=== PATIENT | female | born 1995 | race Caucasian/White ===

== ENCOUNTER → 2017-01-29 | Outpatient (CLI) | payer BC ==
--- NOTE | 2017-01-29 19:47 | Diagnostic Imaging Report ---
EXAMINATION: Magnetic resonance imaging of the right knee without intravenous contrast DATE: 01/29/2017. COMPARISON: None. INDICATION: 22-year-old female, history of fall in December 2016. Right knee pain. TECHNIQUE: Multiplanar, multisequence non contrast enhanced MR imaging was accomplished. FINDINGS: MENISCI: The medial meniscus is intact. The lateral meniscus is intact. LIGAMENTS AND TENDONS: The anterior and posterior cruciate ligaments are intact. The medial collateral ligament is intact. The iliotibial band, mid third lateral capsular ligament, fibular collateral ligament, biceps femoris tendon and conjoined tendon are intact. The quadriceps tendon and patella ligament are intact. JOINT: The articular cartilage surfaces are intact. There is no knee joint effusion, prominent synovitis, or intra-articular body. BONE: There is extensive T1 hypointense and T2 hyperintense abnormal signal involving the proximal tibial epiphysis extending into the proximal metadiaphysis in the inferior margin of the ujuiq-na-hmim. There is no identified cortical or aggressive bone destruction. There is no visible periosteal reaction on MRI. There is no associated soft tissue mass. There is no identified fracture. There are no pathognomonic signal changes of osteonecrosis. There is a normal appearance of the bone marrow of the distal femur with areas of red marrow present. BURSAE AND SOFT TISSUES: There is fluid in the semimembranosus bursa compatible with semimembranosus bursitis. There is no Bragg's cyst. The additional soft tissues are unremarkable. IMPRESSION: 1. Extensive abnormal marrow signal in the visualized proximal tibia which includes signal abnormalities in the proximal tibial epiphysis and proximal tibial metadiaphysis extending to the inferior margin of the [id number]. Recommend dedicated MRI of the right tibia and fibula with and without contrast (tumor protocol) for further assessment and for visualization of the complete extent of the marrow signal abnormalities. The overall extent of abnormal marrow signal does raise concern for an infiltrative bone lesion including malignancies such as lymphoma and Koehler's sarcoma. Langerhans cell histiocytosis and osteomyelitis would be included in the differential diagnosis. Extensive marrow edema relating to an acute more distally located process of the tibia would also be a consideration. 2. Intact medial and lateral meniscus. 3. Intact anterior and posterior cruciate ligaments. Additional ligaments and tendons are intact. 4. Intact articular cartilage. No knee joint effusion. 5. Fluid in the semimembranosus bursa compatible with semimembranosus bursitis. Report faxed to Dr. Licona at 7:46 p.m. 01/29/2017/cb Dictated on workstation # [id number]
== END ==
LOC: RAD 13:01
PROVIDERS: ATTEND Orthopaedic Surgery
DX: R93.7 Abnormal findings on diagnostic imaging of other parts of musculoskeletal system (principal); M71.9 Bursopathy, unspecified
CPT/HCPCS: 73721

== ENCOUNTER → 2017-02-04 | Outpatient (CLI) | payer BC ==
[~2017-02-04] MED LIST: GADOBUTROL 7.5 MMOL/7.5 ML (GADAVIST) VIAL IV ONE
--- NOTE | 2017-02-04 17:10 | Diagnostic Imaging Report ---
EXAM: MRI of the right tibia and fibula without contrast. DATE: February 04, 2017. INDICATION: 22-year-old female, evaluation of marrow signal in the right proximal tibia. COMPARISON: MRI right knee January 29, 2017. TECHNIQUE: Multiple pre- and post-contrast MRI sequences of the right tibia and fibula were obtained. Many sequences include the left tibia and fibula in the [id number]. FINDINGS: There is prominent T2 hyperintense signal in the marrow of the right and left proximal tibias, which extend from the level of the proximal tibial epiphysis to the level of the proximal tibial metadiaphysis. The distal extent of the areas of marrow signal are well demarcated. This is a symmetric appearance bilaterally. There is no identified cortical destruction. There is no associated soft tissue mass. The additional marrow signal within the right and left tibia and fibula is unremarkable. There is no acute fracture. There is no evidence of stress reaction. There is no identified periosteal reaction. There is fluid in the right semimembranosus bursa consistent with semimembranosus bursitis on the right. The additional visualized soft tissues are unremarkable. IMPRESSION: 1. T2 hyperintense marrow signal changes with symmetric appearance in the right and left proximal tibia involving the proximal tibial epiphysis and extending to the level of the proximal tibial metadiaphysis. There is no visualized cortical destruction or associated soft tissue mass. Although the degree of hyperintense marrow signal is prominent and there is extension of signal abnormalities into the epiphysis, particularly given the symmetric appearance, this is favored to relate to prominent red marrow bilaterally. 2. Fluid in the right semimembranosus bursa compatible with semimembranosus bursitis. Dictated by: Dictated on workstation # [id number]
== END ==
LOC: RAD 15:04
PROVIDERS: ATTEND Orthopaedic Surgery
DX: R93.6 Abnormal findings on diagnostic imaging of limbs (principal); M71.88 Other specified bursopathies, other site
CPT/HCPCS: 73720

== ENCOUNTER 2017-02-08 21:09 | Emergency (ER) | payer BC ==
[~2017-02-08] VITALS: Ht 172.7 cm; Wt 58.1 kg
[2017-02-08] MEDS ORDERED: FLUO20CA25 (21:33)
--- NOTE | 2017-02-08 22:01 | ED Back Pain ---
General Chief Complaint: Back Problems Stated Complaint: BACK PAIN Nursing Triage Note: PT TO ED W/ C/O BACK PAIN TO UPPER MIDDLE BACK WHEN SWALLOING. PT REPORTS PAIN WORSE THIS EVENING WHEN SHE FELT LIKE VOMITING. DOES REPORT SHE WAS "LIFTING CADAVERS" EARLIER TODAY ET ALSO REPORTS RECENT COLD. NO OTHER C/O VOICED, DENIES INJURY Nursing Sepsis Screen: No Definite Risk Source of Information: Patient Exam Limitations: No Limitations History of Present Illness Time Seen by Provider: 22:01 Initial Comments 22-year-old female patient presents to the emergency department complaints of upper back pain beginning this afternoon. Patient states she was lifting cadaver's earlier today while at class. States this evening pain increased in patient began feeling nauseated. Denies vomiting. Denies fever, chills, shortness of air, chest pain, dizziness area and denies abdominal pain. Patient reports pain has eased up and is now a 2/10. Location: Paraspinous Muscles, T-Spine Timing/Duration: 4-6 Hours Pain/Injury Location: Back Radiation: Other (denies radiation) Method of Injury: Unknown Modifying Factors: Worse With Movement Associated Symptoms: muscle spasms, No fever, No weakness, No numbness in legs/ feet, No tingling in legs/feet, No sensory/motor loss, No lower back pain, No loss of bladder control, No loss of bowel control Allergies and Home Medications Allergies Coded Allergies: No Known Drug Allergies (Unverified , 02/04/17) Home Medications Fluoxetine HCl 20 Mg Capsule, (Reported) Orphenadrine Citrate 100 Mg Tablet.er, 100 MG PO BID PRN for SPASMS, #14 Ref 0 Prescribed by: FLORECITA ALMONTE on 02/08/172255 Prednisone 20 Mg Tab, 40 MG PO DAILY, #10 Ref 0 Prescribed by: FLORECITA ALMONTE on 02/08/172255 Constitutional: No chills, No dizziness, No fever, No malaise EENTM: no symptoms reported Respiratory: No cough, No dyspnea on exertion, No orthopnea, No phlegm, No short of breath Cardiovascular: No chest pain, No edema, No palpitations Gastrointestinal: No abdominal pain, No constipation, No diarrhea, No dysphagia , No nausea (patient reports nausea earlier tonight when pain started, but resolved at this time.), No vomiting Genitourinary: no symptoms reported Musculoskeletal: see HPI, back pain, No joint pain, No neck pain Skin: no symptoms reported Psychiatric/Neurological: Denies Headache, Denies Numbness, Denies Paresthesia , Denies Tingling, Denies Weakness All Other Systems Reviewed Negative Unless Noted: Yes (Negative excepted noted.) Past Xrrtbim-Okoesf-Gtrqbe Hx Patient Social History Alcohol Use: Denies Use Recreational Drug Use: No Smoking Status: Never a Smoker 2nd Hand Smoke Exposure: No Recent Foreign Travel: No Contact w/Someone Who Travel: No Recent Infectious Disease Expo: No Recent Hopitalizations: No Physical Abuse: No Sexual Abuse: No Mistreated: No Fear: No Surgeries History of Surgeries: No Respiratory History of Respiratory Disorde: No Cardiovascular History of Cardiac Disorders: Yes (MITRAL VALVE PROLAPSE) Neurological History of Neurological Disord: No Genitourinary History of Genitourinary Disor: No Gastrointestinal History of Gastrointestinal Di: No Musculoskeletal History of Musculoskeletal Dis: No Endocrine History of Endocrine Disorders: No HEENT History of HEENT Disorders: No Cancer History of Cancer: No Psychosocial History of Psychiatric Problem: Yes Behavioral Health Disorders: Anxiety Suicide Risk Score: 0 Integumentary History of Skin or Integumenta: No Reviewed Nursing Assessment Reviewed/Agree w Nursing PMH: Yes Family Medical History Significant Family History: No Pertinent Family Hx Physical Exam Vital Signs Vital Sign - Last 12Hours 02/08/17 21:20 Temp 97.3 Pulse 102 Resp 20 B/P (MAP) 128/91 Pulse Ox 100 O2 Delivery Room Air Capillary Refill : Less Than 3 Seconds General Appearance: No Apparent Distress, WD/WN HEENT: PERRL/EOMI, Pharynx Normal Neck: Full Range of Motion, Normal Inspection, Non Tender, Supple Cardiovascular: Regular Rate, Rhythm, No Edema, No Murmur, Normal Peripheral Pulses Respiratory: Chest Non Tender, Lungs Clear, Normal Breath Sounds, No Accessory Muscle Use, No Respiratory Distress Peripheral Pulses: 2+ Dorsalis Pedis (R), 2+ Left Dors-Pedis (L), 2+ Radial Pulses (R), 2+ Radial Pulses (L) Gastrointestinal: Normal Bowel Sounds, No Organomegaly, Non Tender, Soft Back: Normal Inspection, No Decreased Range of Motion, Muscle Spasm (bilateral upper back with tenderness over the rhomboids bilaterally), Vertebral Tenderness (mild thoracic tenderness) Extremity: Normal Capillary Refill, Normal Inspection, Normal Range of Motion, Non Tender, No Pedal Edema Neurologic/Psychiatric: Alert, Oriented x3, No Motor/Sensory Deficits, Normal Mood/Affect Skin: Normal Color, Warm/Dry Progress/Results/Core Measures Results/Orders My Orders Orders - FLORECITA ALMONTE Chest Pa/Lat (2 View) (02/08/17 22:00) Thoracic Spine, 2 Views Only (02/08/17 22:00) Rx-Hydrocodone/Apap 5-325 Mg (Rx-Vicodin (02/08/17 23:00) Rx-Cyclobenzaprine Tablet (Rx-Flexeril T (02/08/17 22:53) Vital Signs/I&O Vital Sign - Last 12Hours 02/08/17 02/08/17 21:20 23:01 Temp 97.3 97.0 Pulse 102 89 Resp 20 18 B/P (MAP) 128/91 Pulse Ox 100 100 O2 Delivery Room Air Room Air Blood Pressure Mean: 103 Diagnostic Imaging Diagonstic Imaging: Xray Plain Films/CT/US/NM/MRI: chest Comments No acute cardiopulmonary findings noted Reviewed: Reviewed/Discussed (discussed with Dr. Angel) Diagonstic Imaging: Xray Plain Films/CT/US/NM/MRI: other (thoracic spine) Comments Scoliosis of the thoracic spine noted. No acute bony abnormality. Reviewed: Reviewed/Discussed (discussed with Dr. Angel) Departure Communication (Admissions) Progress Notes Diagnostic findings discussed with the patient. Patient states she did have a history when she was younger of having scoliosis. Plan for discharge to home. All return precautions were discussed with the patient as described in the discharge instructions of this report. Patient voices understanding and agrees with the treatment plan. Impression Impression: Primary Impression: Strain of thoracic spine Qualified Codes: S29.019A - Strain of muscle and tendon of unspecified wall of thorax, initial encounter Additional Impression: Scoliosis of thoracic spine Qualified Codes: M41.9 - Scoliosis, unspecified Disposition: 01 HOME, SELF-CARE Condition: Improved Departure-Patient Inst. Decision time for Depature: 22:43 Referrals: TINA PYLE MD (PCP/Family) Primary Care Physician Patient Instructions: Scoliosis (DC), Upper Back Pain (DC) Add. Discharge Instructions: All discharge instructions reviewed with patient and/or family. Voiced understanding. Medications as instructed. Tylenol extra strength over-the- counter as directed for pain. Ibuprofen 800 mg by mouth every 8 hours as needed for pain. Ice pack and/or heating pads as needed for pain. Avoid heavy lifting, pushing, pulling, twisting, bending, climbing 5-7 days. Increase activity slowly as tolerated. Follow-up with Dr. Pyle's office if no improvement in symptoms in 7-10 days. Return to the emergency department for worsened pain, numbness, weakness, bowel incontinence, bladder incontinence, shortness of air, vomiting, inability to urinate, blood in the urine, or any other concerns. Scripts Orphenadrine Citrate (Orphenadrine Citrate) 100 Mg Tablet.er 100 MG PO BID Y for SPASMS, #14 TAB 0 Refills Prov: FLORECITA ALMONTE 02/08/17 Prednisone (Prednisone) 20 Mg Tab 40 MG PO DAILY, #10 TAB 0 Refills Prov: FLORECITA ALMONTE 02/08/17 FLORECITA ALMONTE Feb 08, 2017 22:01
[2017-02-08] MEDS ORDERED: PRD20T PO ×2 (22:44→22:56)
[2017-02-08] MEDS ORDERED: ORPH100T PO ×2 (22:44→22:56)
[2017-02-08] MEDS ORDERED: RX-CYCLOBENZAPRINE 10 MG (FLEXERIL) TAB PPK#3 PO STA (22:53)
[2017-02-08] MEDS ORDERED: RX-HYDROCODONE/APAP 5/325 MG #4 TAB PK PO PRN (23:00)
[2017-02-08 23:01] VITALS: BP 126/84
--- NOTE | 2017-02-09 07:32 | Diagnostic Imaging Report ---
INDICATION: Chest pain PA and lateral chest obtained at 1034 PM Heart and mediastinal silhouette are normal in appearance. The lungs appear clear. There is no pneumothorax or pleural fluid. There is a pectus excavatum deformity. IMPRESSION: No acute process in the chest. Pectus excavatum deformity. Dictated by: Dictated on workstation # [id number]
--- NOTE | 2017-02-09 08:33 | Diagnostic Imaging Report ---
INDICATION: Back pain AP and lateral views of the thoracic spine were obtained. There is mild to moderate dextroscoliotic change of the lower thoracic spine. The thoracic vertebrae are normal in height and alignment with no compression deformity or subluxation. The disc spaces are normal in height. IMPRESSION: Mild to moderate dextroscoliotic change of the lower thoracic spine. No acute appearing abnormality. Dictated by: Dictated on workstation # [id number]
== END 2017-02-08 23:00 | disposition home or self-care (01) ==
LOC: EDUNIT# 21:09 → ER 21:10
DX: S29.012A Strain of muscle and tendon of back wall of thorax, initial encounter (principal); M41.84 Other forms of scoliosis, thoracic region; F41.9 Anxiety disorder, unspecified; X50.0XXA Overexertion from strenuous movement or load, initial encounter
CPT/HCPCS: 71020; 72070; 99283

== ENCOUNTER → 2018-05-09 | Outpatient (CLI) | payer BC ==
[~2018-05-09] MED LIST changes: +FLUO20CA25; -GADOBUTROL 7.5 MMOL/7.5 ML (GADAVIST) VIAL IV ONE; +ORPH100T PO; +PRD20T PO
--- NOTE | 2018-05-09 15:42 | Diagnostic Imaging Report ---
EXAMINATION: Magnetic resonance imaging of the right knee without intravenous contrast DATE: May 09, 2018. COMPARISON: February 04, 2017. January 29, 2017. INDICATION: 23-year-old female, right knee pain. No known injury. TECHNIQUE: Multiplanar, multisequence non contrast enhanced MR imaging was accomplished. FINDINGS: MENISCI: The medial meniscus is intact. The lateral meniscus is intact. LIGAMENTS AND TENDONS: The anterior and posterior cruciate ligaments are intact. The medial collateral ligament is intact. The iliotibial band, mid third lateral capsular ligament, fibular collateral ligament, biceps femoris tendon and conjoined tendon are intact. The quadriceps tendon and patella ligament are intact. JOINT: The articular cartilage surfaces are intact. There is no knee joint effusion, prominent synovitis, or intra-articular body. BONE: There is resolution of the previously noted prominent T2 hyperintense signal in the proximal tibia. This is likely previously related to prominent red marrow. There is no acute fracture, bone contusion, or evidence of osteonecrosis. BURSAE AND SOFT TISSUES: There is fluid within the medial collateral ligament bursa compatible with bursitis with similar appearance to comparison MRI of January 29, 2017. There is no Bragg's cyst. Additional soft tissue assessment is unremarkable. IMPRESSION: 1. Findings compatible with MCL bursitis. Unchanged appearance since January 29, 2017. 2. Resolution of marrow signal changes in the proximal tibia which likely previously related to prominent red marrow. No current bone marrow signal abnormality. 3. Intact medial and lateral meniscus. 4. Intact anterior and posterior cruciate ligaments. Additional ligaments and tendons are intact. Dictated by: Dictated on workstation # [id number]
== END ==
LOC: RAD 12:54
PROVIDERS: ATTEND Orthopaedic Surgery
DX: S83.281A Other tear of lateral meniscus, current injury, right knee, initial encounter (principal)
CPT/HCPCS: 73721